=== PATIENT | male | born 1970 | race Caucasian/White ===

== ENCOUNTER 2020-10-27 13:53 | Outpatient (REF) | payer SELFPAY ==
--- NOTE | 2020-10-27 14:10 | MHC.AU.P13 ---
Hearing Instrument Maintenance Date of Visit: 10/27/20 Right Ear: Electroencephalograph Technologist: Phonak Model: [id number] V50M Serial Number: [id number] Repair Warranty: Loss and Damage Warranty: Battery Size: 312 [address] Type of Dome: Small Open Dispensed By: [facility] Date of Fittin09/01/2015 Left Ear: Electroencephalograph Technologist: Phonak Model: CROS II 312 Serial Number: [id number] Repair Warranty: Loss and Damage Warranty: Battery Size: 312 [address] Cross Type of Dome: Small Open Dispensed By: [facility] Date of Fittin09/01/2015 Follow-Up Summary: Patient brought in aids for cleaning. Hearing aids cleaned, slim and CROS tube replaced, small open domes replaced - amplifying clearly. Recommendations: Recommendations: Hearing instrument follow-up or maintenance as needed. Signature: Provider: STEVE Padron-
== END 2020-10-27 13:54 | disposition home or self-care (01) ==
LOC: HO.HAP 13:53
DX: Z46.1 Encounter for fitting and adjustment of hearing aid (principal); H91.93 Unspecified hearing loss, bilateral
CPT/HCPCS: 99499